=== PATIENT | female | born 1995 | race Caucasian/White ===

== ENCOUNTER 2018-02-07 22:11 | Emergency (ER) | payer OTHER ==
[2018-02-07 22:19] VITALS: BP 143/91
--- NOTE | 2018-02-07 22:58 | EDPHY ---
H & P Stated Complaint: "I MAY HAVE TETANUS,OR RABIES"TIGHT JAW/DOG BITE X 1 WK AGO Time Seen by Provider: 02/07/18 22:29 HPI/ROS: Chief Complaint: Jaw numbness, throat discomfort HPI: 22-year-old female is presenting complaining of a numbness and tingling sensation in her bilateral jaw with a gagging sensation which began abruptly at 6:00 a.m. Tonight. Sensation has improved a little bit of but is still there. She states she is concerned that she might have rabies because she was bit on the ankle 10 days ago. 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 A [place] ran from the street and bit her on her ankle. She did have some bleeding from the site. She has been feeling well in the site has healed since that time. When she began having the sensation tonight she read on the Internet and became concerned that she might have rabies. Denies any fevers or chills. No headache. No pain or irritation at the puncture site. Her employer is able to follow up tomorrow with the address. ROS: 10 systems were reviewed and were negative except those elements noted in the HPI. PMH: Denies Social History: Vapes nicotine, occasional alcohol, no recreational drug use Family History: non-contributory Physical Exam: Gen: Awake, Alert, No Distress HEENT: Nose: no rhinorrhea Eyes: PERRLA, EOMI Mouth: Moist mucosa no excessive salivation. Mandible is nontender, sensations intact in all facial nerve distribution. She has no trismus. Oropharynx is normal. Neck: Supple, no JVD, no mass Chest: nontender, lungs clear to auscultation Heart: S1, S2 normal, no murmur Abd: Soft, non-tender, no guarding Back: no CVA tenderness, no midline tenderness Ext: no edema, non-tender, healing puncture wound in the right ankle, no erythema or tenderness. Skin: no rash Neuro: CN II-XII intact, Sensation grossly intact, Strength 5/5 in bilateral upper and lower extremities - Personal History LMP (Females 10-55): 15-21 Days Ago Current Tetanus Diphtheria and Acellular Pertussis (TDAP): Unsure - Medical/Surgical History Hx Asthma: No Hx Chronic Respiratory Disease: No Hx Diabetes: No Hx Cardiac Disease: No Hx Renal Disease: No Hx Cirrhosis: No Hx Alcoholism: No Hx HIV/AIDS: No Hx Splenectomy or Spleen Trauma: No Other PMH: DENIES - Social History Smoking Status: Current every day smoker Constitutional: Initial Vital Signs Temperature (C) 36.2 C 02/07/18 22:15 Heart Rate 95 02/07/18 22:15 Respiratory Rate 16 02/07/18 22:15 Blood Pressure 143/91 H 02/07/18 22:15 O2 Sat (%) 97 02/07/18 22:15 O2 Delivery Mode Room Air Allergies/Adverse Reactions: No Known Allergies Allergy (Unverified 02/07/18 22:19) Home Medications: Medication Instructions Recorded NK [No Known Home Meds] 02/07/18 Medical Decision Making ED Course/Re-evaluation: 22-year-old female's concerned she may have contracted rabies after being bit by a dog 10 days ago. She has a completely normal exam. She is afebrile. I have discussed with Dr. Reed, infectious Disease. She does not believe that this patient is exhibiting symptoms for rabies at this time. She is not recommending any testing or treatment at this time. Patient can follow up with primary care physician or return for any concerns. Patient has been reassured. She understands her instructions. Departure - Departure Disposition: Home, Routine, Self-Care Clinical Impression: Healing wound Condition: Good Instructions: Animal Bite (ED) Additional Instructions: Follow up with primary care physician in 3-4 days for any concerns. Return to the emergency department for increasing difficulty swallowing, choking or gagging, fevers or chills, or any other concerns. Referrals: Rowena Worthington MD [Medical Doctor] - As per Instructions
== END 2018-02-07 23:22 | disposition home or self-care (01) ==
DX: R20.0 Anesthesia of skin (principal); S91.059 Open bite, unspecified ankle

== ENCOUNTER → 2018-07-12 | Outpatient (CLI) | payer BC | LOC: FIMAGING 09:26 | PROVIDERS: ATTEND Midwife | DX: T83.32XA Displacement of intrauterine contraceptive device, initial encounter (principal); R10.32 Left lower quadrant pain; N83.201 Unspecified ovarian cyst, right side ==